=== PATIENT | female | born 1985 | race Two or more races ===

== ENCOUNTER 2024-07-25 20:33 | Emergency (ER) | payer MEDICAID, OTHER ==
[~2024-07-25] VITALS: Ht 154.9 cm; Wt 60.0 kg
[2024-07-25 22:21] VITALS: BP 121/74; PULSE 68; RESP 18; TEMP 97.9; O2SAT 99
[2024-07-25] MEDS ORDERED: DOXY100C4 PO (23:25)
--- NOTE | 2024-07-25 23:25 | ED.PDOC ---
History of Present Illness(SKN HPI Comments This is a 39-year-old female patient chief complaint abscess to right groin. Patient states she has been following up at urgent care had abscess drained a couple of days ago wick in place she followed up again at a drained again another wick in place. Was started on Keflex she notes and improved however she states over the past 24 hours has increased in size. Denies fevers, chills, nausea, or vomiting, Chief Complaint: Abscess Time Seen by MD: 20:50 Primary Care Provider: n/a History of Present Illness: Nurses Notes, Medications, Allergies Allergies: Coded Allergies: NO KNOWN ALLERGIES (Unverified , 07/25/24) Home Meds Active Scripts Doxycycline Hyclate (Doxycycline Hyclate) 100 Mg Cap, 1 TAB PO BID for 7 Days, #14 CAP Prov:CLARY DIAL [employer] 07/25/24 Information Source: Patient Mode of Arrival: Ambulatory Past Medical History PAST MEDICAL HISTORY: Denies Surgical History: Denies all surgeries STEAM TRAP MAN History: No Pertinent STEAM TRAP MAN History Family History Family History: Reviewed,noncontributory to illness Social History Smoker: Non-Smoker Alcohol: Denies ETOH Use Drugs: Denies Drug Use Constitutional: denies: chills, diaphoresis, fatigue, fever, malaise, sweats, weakness, others EENTM: denies: blurred vision, double vision, ear bleeding, ear discharge, ear drainage, ear pain, ear ringing, eye pain, eye redness, hearing loss, mouth pain, mouth swelling, nasal discharge, nose bleeding, nose congestion, nose pa in, photophobia, tearing, throat pain, throat swelling, voice changes, others Respiratory: denies: cough, hemoptysis, orthopnea, SOB at rest, shortness of breath, SOB with excertion, stridor, wheezing, others Cardiovascular: denies: chest pain, dizzy spells, diaphoresis, Dyspnea on exertion, edema, irregular heart beat, left arm pain, lightheadedness, palpitations, PND, syncope, others Gastrointestinal: denies: abdomen distended, abdominal pain, blood streaked bowels, constipated, diarrhea, dysphagia, difficulty swallowing, hematemesis, melena, nausea, poor appetite, poor fluid intake, rectal bleeding, rectal pain, vomiting, others Genitourinary: denies: abnormal vagina bleeding, burning, dyspareunia, dysuria, flank pain, frequency, hematuria, incontinence, pain, , vagina discharge, urgency, others Neurological: denies: dizziness, fainting, headache, left sided numbness, left sided weakness, numbness, paresthesia, pre-existing deficit, right sided numbness, right sided weakness, seizure, speech problems, tingling, tremors, weakness, others Musculoskeletal: denies: back pain, gout, joint pain, joint swelling, muscle pain, muscle stiffness, neck pain, others Integumetry: reports: others (Abscess right groin); denies: bruises, change in color, change in hair/nails, dryness, laceration, lesions, lumps, rash, wounds Allergic/Immunocompromised: denies: Difficulty Healing, Frequent Infections, Hives, Itching, others Hematologic/Lymphatic: denies: anemia, blood clots, easy bleeding, easy bruising, swollen glands, others Endocrine: denies: excessive hunger, excessive sweating, excessive thirst, excessive urination, flushing, intolerance to cold, intolerance to heat, unexplained weight gain, unexplained weight loss, others Psychiatric: denies: anxiety, bipolar disorder, depression, hopeless, panic disorder, schizophrenia, sleepless, suicidal, others Physical Exam General Appearance: No Apparent Distress, Normal HEENT: Pharynx Normal Neck: Full Range of Motion, Non-Tender Respiratory: Lungs Clear, No Respiratory Distress, Normal Breath Sounds Cardiovascular: No Murmur, Normal Peripheral Pulses, Regular Rate/Rhythm Breast Exam: Deferred Gastrointestinal: Non Tender, Soft Genitalia: Deferred Pelvic: Deferred Rectal: Deferred Extremities: Normal range of motion, Non-tender, No pedal edema Musculoskeletal : Apperance: Normal Neurologic: Alert, 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 Non fluctuant and tender to touch. Trace erythema no noted drainage when squeezed through opening. No noted streaking or surrounding lymphedema) Lymphatic: No Adenopathy Was a procedure done? Was a procedure done?: No Differential Diagnosis (INTG) Differential Diagnosis: Abscess, Cellulitis X-Ray, Labs, Meds, VS Vital Signs Date Time Temp Pulse Resp B/P (MAP) Pulse Ox O2 Delivery O2 Flow Rate FiO2 07/25/24 22:21 97.9 68 18 121/74 (90) 99 97.9 07/25/24 22:21 68 18 99 Room Air 07/25/24 20:58 98.9 77 18 141/85 (103) 100 X-Ray, Labs, Meds, VS Comment Abscess approximate size of a quarter tender to touch non fluctuant hard with wick in place without drainage. Wick removed. Abscess dressed. Advised patient to discontinue Keflex. We will start patient on doxycycline twice daily x7 days. Also advised patient to take daily yogurt or probiotic [id number]. Also discussed use warm water compresses to the abscess 3 times daily to encourage drainage and softening of the abscess. Advised to follow up with her PCP in 2 days for abscess re-evaluation or urgent care or back here in the ER. Patient also advised to return to the ER for fevers, nausea, vomiting, increasing pain or any concerning symptoms. Patient agrees with discharge plan of care Time of 1ST Reevaluation: 23:40 Reevaluation 1ST: Improved Patient Education/Counseling: Diagnosis, Treatment, Prognosis, Need For Follow Up Family Education/Counseling: No Family Present Departure 1 Departure Time of Disposition: 23:24 Impression: Primary Impression: Abscess Disposition: 01 HOME / SELF CARE / HOMELESS Condition: Stable e-Prescriptions Doxycycline Hyclate (Doxycycline Hyclate) 100 Mg Cap 1 TAB PO BID for 7 Days, #14 CAP Prov: CLARY DIAL 07/25/24 Discharged With: Self Critical Care Note Critical Care Time?: No Stability Stability form required: CLARY Syed Jul 25, 2024 23:25
== END 2024-07-25 23:37 | disposition home or self-care (01) ==
LOC: ER 20:33
DX: L02.214 Cutaneous abscess of groin (principal)

== ENCOUNTER 2025-01-16 18:49 | Emergency (ER) | payer MEDICAID ==
[~2025-01-16] VITALS: Ht 154.9 cm; Wt 59.9 kg
[~2025-01-16 18:49] MED LIST: DOXY100C4 PO
[2025-01-16] MEDS: ONDANSETRON ODT 4 MG TAB PO ONE (20:12)
[2025-01-16 20:43] LABS: Basophils # (auto) 0 10 ^3/uL (0-0.2); Eosinophils # (auto) 0.2 10 ^3/uL (0-0.8); Hemoglobin 12.7 g/dL (12.2-16.2); Lymphocytes # (auto) 3.4 10 ^3/uL (0.4-5.4); Lymphocytes % (auto) 44.1 % (10.0-50.0); Mean Corpuscular Volume 78.6 fL (80.0-100.0); Monocytes # (auto) 0.4 10 ^3/uL (0-1.3); Red Blood Cells 4.89 10^6/uL (4.0-5.20); White Blood Cell 7.7 10^3/uL (4.4-10.8)
[2025-01-16 20:44] LABS: Basophils % (auto) 0.5 % (0.0-2.0); Eosinophils % (auto) 2.4 % (0.0-7.0); Hematocrit 38.5 % (36.0-46.0); Mean Corpuscular Hgb Conc. 33.1 g/dL (32.0-36.0); Monocytes % (auto) 5.5 % (0.0-12.0); Neutrophils # (auto) 3.6 10 ^3/uL (1.6-8.6); Neutrophils % (auto) 47.5 % (37.0-80.0); Nucleated Red Blood Cells % 0.1 %; Platelet Count (auto) 305 10^3/uL (140-450); Red Cell Distribution Width 14.5 % (11.8-14.3)
[2025-01-16 20:56] LABS: Alanine Aminotransferase 13 U/L (7-40); Alkaline Phosphatase 68 U/L (46-116); Anion Gap 8 (5-15); Aspartate Aminotransferase 14 U/L (13-40); BUN/Creatinine Ratio 19.2 (10.0-20.0); Blood Urea Nitrogen 14 mg/dL (9-23); Calcium 10.3 mg/dL (8.7-10.4); Carbon Dioxide 26 mmol/L (20-31); Chloride 104 mmol/L (98-107); Glucose 88 mg/dL (74-106); Sodium 138 mmol/L (136-145)
[2025-01-16 21:03] LABS: Albumin 4.9 g/dL (3.2-4.8); Bilirubin, Total 0.3 mg/dL (0.2-1.0)
[2025-01-16] MEDS: IOHEXOL 300 MG/ML 100ML BOTTLE IJ ONE (23:56)
[2025-01-17] MEDS: HYDROcodone-ACET 5/325MG TAB PO ONE (00:30)
[2025-01-17] MEDS: KETOROLAC TROMETH 30 MG/ML 1ML VIAL IV ONE (00:47)
[2025-01-17 00:54] VITALS: BP 149/99; PULSE 69; RESP 14; TEMP 98.6; O2SAT 100
--- NOTE | 2025-01-17 01:44 | DVH ---
CT Neck with Contrast CLINICAL HISTORY: Mass TECHNIQUE: CT of the neck was performed with 100 ml of omnipaque 300 administered intravenously. This exam was performed according to our departmental dose optimization program. Up-to-date CT equipment and radiation dose reduction techniques are utilized as appropriate. WID: COMPARISON: None Neck findings: Brain and Orbits: The visualized intracranial and intraorbital structures appear grossly unremarkable . Sinuses and Mastoids: Mild mucosal thickening of the bilateral maxillary sinuses and a mucous retenti on cyst or polyp in the left maxillary sinus The visualized paranasal sinuses and mastoid air cells a re otherwise clear. Parotid and Submandibular Glands: The parotid and submandibular glands appear unremarkable. Cervical Lymph Nodes: No significant cervical adenopathy is seen. Thyroid: Large hypodense left thyroid mass measuring 3.5 cm on series 2 image 78. Larynx and Hypopharynx: The larynx and hypopharynx appear normal. Oral Cavity, Oropharynx, and Nasopharynx: The base of the tongue, oropharyngeal region, and posterior nasopharynx appear unremarkable. Cervical Vasculature: The carotid arteries are patent. Osseous Structures: No destructive osseous lesions are seen. Visualized Upper Lungs: No suspicious lesions are identified within the visualized portions of the up per lungs. IMPRESSION: 1. Hypodense left thyroid mass measuring 3.5 cm. Recommend obtaining targeted thyroid ultrasound for characterization.
[2025-01-17] MEDS ORDERED: HYDR-4902 PO (02:20)
[2025-01-17] MEDS ORDERED: IBUP-1455 PO (02:20)
--- NOTE | 2025-01-17 02:21 | ED.PDOC ---
Eye-HPI HPI Comments This patient is a pleasant but Vincentian-speaking only 39-year-old female who arrives the ED today for complaints of dysphagia and neck concerns. Patient was recently diagnosed with a thyroid nodule calm but states that is subsequent to that diagnosis she feels like it is getting larger and now affecting her ability to swallow. Patient denies any fever nausea or vomiting. No stridor appreciated time of evaluation. Chief Complaint: Neck Pain Time Seen by MD: 19:07 Primary Care Provider: n/a Reviewed Notes: Nurses Notes Allergies: Coded Allergies: Acetaminophen (Verified Allergy, Unknown, 01/16/25) Home Meds Active Scripts Hydrocodone-Acetaminophen (Hydrocodone Bitartrate/AC 5-325 mg) 1 Tab Tab, 1 TAB PO Q6HP PRN, #15 TAB Prov:NONI TAVAREZ PAC 01/17/25 Ibuprofen Micronized (Ibuprofen) 800 Mg Tab, 800 MG PO Q8HP PRN, #20 TAB Prov:NONI TAVAREZ PAC 01/17/25 Doxycycline Hyclate (Doxycycline Hyclate) 100 Mg Cap, 1 TAB PO BID for 7 Days, #14 CAP Prov:CLARY DIAL 07/25/24 Information Source: Patient Mode of Arrival: Ambulatory Timing: Days Duration: Since onset Prehospital treatment: None Quality: Pain Onset: Spontaneous Past Medical History PAST MEDICAL HISTORY: Denies Surgical History: Denies all surgeries DEHYDRATING PRESS OPERATOR History: No Pertinent DEHYDRATING PRESS OPERATOR History Family History Family History: Reviewed,noncontributory to illness Social History Smoker: Non-Smoker Alcohol: Denies ETOH Use Drugs: Denies Drug Use Lives In: Home Constitutional: denies: chills, diaphoresis, fatigue, fever, malaise, sweats, weakness, others EENTM: reports: others (Patient complains of some difficulty of swallowing due to a thyroid lesion); denies: blurred vision, double vision, ear bleeding, ear discharge, ear drainage, ear pain, ear ringing, eye pain, eye redness, hearing loss, mouth pain, mouth swelling, nasal discharge, nose bleeding, nose congestion, nose pain, photophobia, tearing, throat pain, throat swelling, voice changes Respiratory: denies: cough, hemoptysis, orthopnea, SOB at rest, shortness of breath, SOB with excertion, stridor, wheezing, others Cardiovascular: denies: chest pain, dizzy spells, diaphoresis, Dyspnea on exertion, edema, irregular heart beat, left arm pain, lightheadedness, palpitations, PND, syncope, others Gastrointestinal: denies: abdomen distended, abdominal pain, blood streaked bowels, constipated, diarrhea, dysphagia, difficulty swallowing, hematemesis, melena, nausea, poor appetite, poor fluid intake, rectal bleeding, rectal pain, vomiting, others Genitourinary: denies: abnormal vagina bleeding, burning, dyspareunia, dysuria, flank pain, frequency, hematuria, incontinence, pain, , vagina discharge, urgency, others Neurological: denies: dizziness, fainting, headache, left sided numbness, left sided weakness, numbness, paresthesia, pre-existing deficit, right sided numbness, right sided weakness, seizure, speech problems, tingling, tremors, weakness, others Musculoskeletal: denies: back pain, gout, joint pain, joint swelling, muscle pain, muscle stiffness, neck pain, others Integumetry: denies: bruises, change in color, change in hair/nails, dryness, laceration, lesions, lumps, rash, wounds, others Allergic/Immunocompromised: denies: Difficulty Healing, Frequent Infections, Hives, Itching, others Hematologic/Lymphatic: denies: anemia, blood clots, easy bleeding, easy bruising, swollen glands, others Endocrine: denies: excessive hunger, excessive sweating, excessive thirst, excessive urination, flushing, intolerance to cold, intolerance to heat, unexplained weight gain, unexplained weight loss, others Psychiatric: denies: anxiety, bipolar disorder, depression, hopeless, panic disorder, schizophrenia, sleepless, suicidal, others Physical Exam General Appearance: Mild Distress (Moderate distress due to swallowing con cerns.), Normal HEENT: Pharynx Normal, TMs Normal, Other (Unremarkable evaluation of oropharynx. I was able to appreciate a nodule on the left-sided thyroid. No signs of infection.) Neck: Full Range of Motion, Non-Tender, Normal, Normal Inspection Respiratory: Chest Non-Tender, Lungs Clear, No Accessory Muscle Use, No Respiratory Distress, Normal Breath Sounds Cardiovascular: No Edema, No JVD, No Murmur, No Gallop, Normal Peripheral Pulses, Regular Rate/Rhythm Breast Exam: Deferred Gastrointestinal: No Organomegaly, Non Tender, No Pulsatile Mass, Normal Bowel Sounds, Soft Genitalia: Deferred Pelvic: Deferred Rectal: Deferred Extremities: No calf tenderness, Normal capillary refill, Normal inspection, Normal range of motion, Non-tender, No pedal edema Neurologic: Alert, No Motor Deficits, Normal Affect, Normal Mood, No Sensory Deficits Cerebellar Function: Normal Reflexes: Normal Skin: Dry, Normal Color, Warm Lymphatic: No Adenopathy Was a procedure done? Was a procedure done?: No EENT DIFF Eye: N/A Sore Throat: Other (Occlusive thyroid nodule, oropharyngeal neoplasm) X-Ray, Labs, Meds, VS Vital Signs Date Time Temp Pulse Resp B/P (MAP) Pulse Ox O2 Delivery O2 Flow Rate FiO2 01/17/25 00:54 98.6 69 14 149/99 (116) 100 98.6 01/16/25 19:40 97.8 76 18 130/80 (97) 96 97.8 01/16/25 19:30 18 96 Room Air* 0 21 Lab Test 01/16/25 20:25 Range/Units White Blood Count 7.7 4.4-10.8 10^3/uL Red Blood Count 4.89 4.0-5.20 10^6/uL Hemoglobin 12.7 12.2-16.2 g/dL Hematocrit 38.5 36.0-46.0 % Mean Corpuscular Volume 78.6 L 80.0-100.0 fL Mean Corpuscular Hemoglobin 26.0 L 28.0-32.0 pg Mean Corpuscular Hemoglobin Concent 33.1 32.0-36.0 g/dL Red Cell Distribution Width 14.5 H 11.8-14.3 % Platelet Count 305 140-450 10^3/uL Mean Platelet Volume 9.1 6.9-10.8 fL Neutrophils (%) (Auto) 47.5 37.0-80.0 % Lymphocytes (%) (Auto) 44.1 10.0-50.0 % Monocytes (%) (Auto) 5.5 0.0-12.0 % Eosinophils (%) (Auto) 2.4 0.0-7.0 % Basophils (%) (Auto) 0.5 0.0-2.0 % Neutrophils # (Auto) 3.6 1.6-8.6 10 ^3/uL Lymphocytes # (Auto) 3.4 0.4-5.4 10 ^3/uL Monocytes # (Auto) 0.4 0-1.3 10 ^3/uL Eosinophils # (Auto) 0.2 0-0.8 10 ^3/uL Basophils # (Auto) 0 0-0.2 10 ^3/uL Nucleated Red Blood Cells 0.1 % Sodium Level 138 136-145 mmol/L Potassium Level 4.0 3.5-5.1 mmol/L Chloride Level 104 98-107 mmol/L Carbon Dioxide Level 26 20-31 mmol/L Anion Gap 8 5-15 Blood Urea Nitrogen 14 9-23 mg/dL Creatinine 0.73 0.550-1.02 mg/dL Glomerular Filtration Rate Calc 109 >90 mL/min BUN/Creatinine Ratio 19.2 10.0-20.0 Serum Glucose 88 74-106 mg/dL Calcium Level 10.3 8.7-10.4 mg/dL Total Bilirubin 0.3 0.2-1.0 mg/dL Aspartate Amino Transferase (AST) 14 13-40 U/L Alanine Aminotransferase (ALT) 13 7-40 U/L Alkaline Phosphatase 68 46-116 U/L Total Protein 8.0 5.7-8.2 g/dL Albumin 4.9 H 3.2-4.8 g/dL Current Medications Medications (Trade) Dose Ordered Sig/Christin Route Start Time Stop Time Status Last Admin Ketorolac Tromethamine (Toradol Injection) 30 mg ONCE ONCE IV 01/17/25 00:45 01/17/25 00:46 DC 01/17/25 00:47 X-Ray, Labs, Meds, VS Comment All studies performed the ED were evaluated by me personally. Imaging studies confirmed a 3.5 cm nodule on the thyroid. No airway involvement. Advised patient she needs to continue follow up with her primary care provider for discussions related to long-term management of her thyroid nodule concerns. Time of 1ST Reevaluation: 02:16 Reevaluation 1ST: Improved Consultation: PCP Patient Education/Counseling: Diagnosis, Treatment Family Education/Counseling: Diagnosis, Treatment Departure 1 Departure Time of Disposition: 02:17 Impression: Primary Impression: Thyroid nodule Disposition: 01 HOME / SELF CARE / HOMELESS Condition: Stable Additional Instructions: Advised patient utilize pain medication as needed and additionally, patient should continue follow up with primary care provider or ENT specialist to address her thyroid nodule concerns. e-Prescriptions Tramadol Hcl (Tramadol Hcl) 50 Mg Tab 50 MG PO Q8HP PRN, #20 TAB Prov: NONI TAVAREZ PAC 01/17/25 Ibuprofen Micronized (Ibuprofen) 800 Mg Tab 800 MG PO Q8HP PRN, #20 TAB Prov: NONI TAVAREZ PAC 01/17/25 Discharged With: Self, Friend Critical Care Note Critical Care Time?: No Stability Stability form required: No Heart Score Heart Score: Heart Score Response (Comments) Value History N/A 0 EKG N/A 0 Age N/A 0 Risk Factors N/A 0 Troponin N/A 0 Total 0 NONI TAVAREZ PAC January 17, 2025 02:21
[2025-01-17] MEDS ORDERED: TRAM50TA2 PO (02:29)
== END 2025-01-17 02:49 | disposition home or self-care (01) ==
LOC: ER 19:05
DX: E04.1 Nontoxic single thyroid nodule (principal); Z88.8 Allergy status to other drugs, medicaments and biological substances; Z79.899 Other long term (current) drug therapy
CPT/HCPCS: 36415; 70491; 80053; 85025; 96374; 99285; J1885; Q0162; Q9967